=== PATIENT | female | born 1940 ===

== ENCOUNTER 2017-02-06 06:48 | Day surgery (SDC) | payer MEDICARE ==
[2017-02-06 07:41] LABS: HEMATOCRIT 40.7 % (36.0-48.0); HEMOGLOBIN 13.7 g/dL (12-16); MCH 31.6 pg (26.0-34.0); MCHC 33.7 g/dL (31.0-37.0); MEAN PLATELET VOLUME 9.2 fL (7.4-10.4); RBC 4.33 10x6/uL (4.00-5.40); RDW 12.8 % (11.5-14.5); WBC 7.1 10x3/uL (4.8-10.8)
[2017-02-06 07:54] LABS: ANION GAP 11.4 mmol/L (8-16); CARBON DIOXIDE 30.9 mmol/L (21.0-32.0); CREATININE - SERUM 0.8 mg/dL (0.6-1.3); POTASSIUM - SERUM 3.3 mmol/L (3.5-5.1)
[2017-02-06] MEDS ORDERED: CARAFATE1 G PO (08:40)
[2017-02-06] MEDS ORDERED: LOVASTATIN PO (08:41)
[2017-02-06] MEDS ORDERED: PROZAC40 MG PO (08:41)
[2017-02-06] MEDS ORDERED: EVISTA60 MG PO (08:42)
[2017-02-06] MEDS ORDERED: PROAIR HFA8.5 GM INH (08:42)
[2017-02-06] MEDS ORDERED: MIRTAZAPINE TAB 7.5 PO (08:42)
[2017-02-06] MEDS ORDERED: GLUCOPHAGE500 MG PO (08:43)
[2017-02-06] MEDS ORDERED: BENAZEPRIL HCL10 MG PO (08:43)
[2017-02-06] MEDS ORDERED: SINGULAIR10 MG PO (08:43)
[2017-02-06] MEDS ORDERED: ARICEPT5 MG PO (08:43)
[2017-02-06 08:52] VITALS: BP 153/84; BMI 17.0
--- NOTE | 2017-02-06 09:50 | NUR ---
PT REC'D TO ROOM VIA STRETCHER. DROWSY, BUT RESPONDS TO VERBAL STIMULI AND GENTLE SHAKE.
--- NOTE | 2017-02-06 10:20 | NUR ---
PT AWAKE AND ALERT. TOLERATED FULL LIQ DIET.
--- NOTE | 2017-02-06 10:30 | NUR ---
IV D/C'D CATH INTACT.
--- NOTE | 2017-02-06 10:45 | NUR ---
D/C INSTRUCTIONS EXPLAINED TO PT AND SPOUSE. VOICED UNDERSTANDING. COPIES OF ALL GIVEN, WELL WRITTEN RX FOR OMEPRAZOLE PER DR. SOUZA. D/C'D HOME VIA W/C TO PRIVATE CAR.
--- NOTE | 2017-02-08 14:40 | OP ---
PATIENT NAME: FRANK GONZALEZ MEDICAL RECORD: [id number] :41 LOCATION:[facility] ADMISSION DATE: SURGEON: JYOTI SOUZA DO DATE OF OPERATION: 02/06/2017 PROCEDURE: EGD with biopsies. INDICATIONS FOR PROCEDURE: Heartburn, lower abdominal pain, and change in bowel habits. SCOPE: Olympus video gastroscope. MEDICATIONS: Propofol 100 mg IV per anesthesia. ESTIMATED BLOOD LOSS: Minimal. COMPLICATIONS: None. FINDINGS: Informed consent was given. The patient was made comfortable with the above medication. After reaching an adequate level of sedation by slow IV push, the patient was placed on her left side. The endoscope was then advanced under direct visualization through the mouth to the second portion of the duodenum. The upper, middle, and lower thirds of the esophagus appeared normal. At the GE junction, there was evidence of mild LA class A reflux-induced esophagitis. There was a single island of columnar appearing mucosa proximal to the Z line. Appearances were consistent with possible Goldman's esophagus. Biopsies were taken with cold forceps. The endoscope was then advanced beyond the GE junction into the stomach and retroflexed to view the cardia and fundus, which appeared normal. In the body and antrum of the stomach, there were patchy areas of erythema and granularity consistent with possible gastritis. Random biopsies were taken to submit for histology and to rule out H. pylori. In the antrum and prepyloric region, there were more findings consistent with inflammation and gastritis. In this site, there were also a few superficial gastric ulcers without exudates or bleeding stigmata. The endoscope was advanced beyond the pylorus into the duodenum where the bulb, first portion, and second portion of the duodenum appeared normal. The endoscope was then withdrawn from the patient. The patient tolerated the procedure well and there were no complications. IMPRESSION: 1. LA class A reflux induced esophagitis with possible Goldman's esophagus, biopsies pending. 2. Erythema and granularity of the stomach consistent with gastritis, biopsies pending. 3. Gastric ulcerations, which were superficial and not bleeding. PLAN AND RECOMMENDATIONS: 1. Discharge home when recovery parameters are met. 2. GERD diet and reflux precautions. 3. Omeprazole or equivalent proton pump inhibitor 40mg daily in the a.m. times 8 weeks. 4. Change Carafate to as needed use for breakthrough symptoms. 5. Notify clinic if symptoms failed to improve or worsen. 6. Follow up biopsy specimen results and treatment for H. pylori if indicated. OPERATIVE REPORT [id number] FRANK GONZALEZ TRANSINT:[id number] Voice Confirmation ID: [id number] DOCUMENT ID: [id number] JYOTI SOUZA DO at 1440 CC: [id number] DICTATION DATE: 02/06/17940 PERINATOLOGY PHYSICIAN: 02/06/17 1139 [facility] 02/06/17 [id number] [place] [address]
== END 2017-02-06 11:46 | disposition home or self-care (01) ==
LOC: D.OPS 06:48
PROVIDERS: Anesthesiology
DX: R12 Heartburn (principal); R10.30 Lower abdominal pain, unspecified; K21.0 Gastro-esophageal reflux disease with esophagitis; K25.9 Gastric ulcer, unspecified as acute or chronic, without hemorrhage or perforation; F17.200 Nicotine dependence, unspecified, uncomplicated; E11.9 Type 2 diabetes mellitus without complications; J45.909 Unspecified asthma, uncomplicated; Z01.812 Encounter for preprocedural laboratory examination

== ENCOUNTER 2017-02-13 07:08 | Day surgery (SDC) | payer MEDICARE ==
[~2017-02-13 07:08] MED LIST: ARICEPT5 MG PO; BENAZEPRIL HCL10 MG PO; CARAFATE1 G PO; EVISTA60 MG PO; GLUCOPHAGE500 MG PO; LOVASTATIN PO; MIRTAZAPINE TAB 7.5 PO; PROAIR HFA8.5 GM INH; PROZAC40 MG PO; SINGULAIR10 MG PO
[2017-02-13 07:48] LABS: HEMATOCRIT 36.2 % (36.0-48.0); HEMOGLOBIN 12.4 g/dL (12-16); MCH 31.6 pg (26.0-34.0); MCHC 34.3 g/dL (31.0-37.0); MCV 92.3 fL (80.0-100.0); MEAN PLATELET VOLUME 9.4 fL (7.4-10.4); RBC 3.92 10x6/uL (4.00-5.40); RDW 12.4 % (11.5-14.5); WBC 4.3 10x3/uL (4.8-10.8)
[2017-02-13 07:59] LABS: ANION GAP 12.4 mmol/L (8-16); CALCIUM 8.8 mg/dL (8.5-10.1); CREATININE - SERUM 0.9 mg/dL (0.6-1.3); POTASSIUM - SERUM 3.4 mmol/L (3.5-5.1)
[2017-02-13 08:02] VITALS: BP 140/80; BMI 17.0
--- NOTE | 2017-02-13 10:50 | NUR ---
1050 DISCHARGE INSTRUCTIONS COMPLETE. PRESCRIPTIONS FOR LINZESS GIVEN. PT HAS NO QUESTIONS OR CONCERNS AT THIS TIME. PT ESCORTED OUT BY VOLUNTEER.
--- NOTE | 2017-02-14 09:09 | OP ---
PATIENT NAME: FRANK GONZALEZ MEDICAL RECORD: [id number] :41 [facility]ATION[facility] AD[facility]ION DATE: SURGEON: JYOTI SOUZA DO DATE OF OPERATION: 02/13/2017 PROCEDURE: Colonoscopy with polypectomy. INDICATIONS FOR PROCEDURE: Constipation and change in bowel habits as well as lower abdominal pain. SCOPE: Olympus video pediatric colonoscope. MEDICATIONS: Propofol 150 mg IV per anesthesia. WITHDRAWAL TIME: 13 minutes. ESTIMATED BLOOD LOSS: Minimal. COMPLICATIONS: None. FINDINGS: Informed consent was given. The patient was made comfortable with the above medication. DESCRIPTION OF PROCEDURE: After reaching an adequate level of sedation by slow IV push, the patient was placed on her left side. A digital rectal examination was performed and was normal. The endoscope was then advanced under direct visualization through the rectum to the cecum with visualization of the appendiceal orifice and ileocecal valve. The scope was slowly withdrawn and mucosa was carefully examined. The prep quality was good. There were 2 polyps visualized on today's examination. One was located in the ascending colon. It was a benign appearing sessile polyp, measuring approximately 3 mm in diameter. It was removed using hot forceps in 1 piece and completely retrieved. The second polyp was located in the rectum. It was benign appearing sessile polyp measuring approximately 6 mm in diameter. It was removed using hot forceps in 1 piece and completely retrieved. In the sigmoid colon, there was evidence of mild diverticulosis characterized by small mouth diverticula. Retroflexion was performed in the rectum with the normal appearing rectal wall. There were no other abnormalities. The endoscope was withdrawn from the patient. The patient tolerated the procedure well and there were no complications. IMPRESSIONS: 1. Two polyps as described above removed using hot forceps. 2. Mild diverticulosis of the sigmoid colon. PLAN AND RECOMMENDATIONS: 1. Discharge home when recovery parameters are met. 2. Follow up biopsy specimen results. 3. High fiber diet. 4. Continue current medications. 5. Trial of Linzess 145 mcg capsule daily with titration to maintain more regular bowel movements and to improve abdominal pain related to constipation. 6. No further colonoscopies are required due to the patient's age, unless symptoms warrant otherwise. OPERATIVE REPORT [id number] FRANK GONZALEZ TRANSINT:[id number] Voice Confirmation ID: [id number] DOCUMENT ID: [id number] JYOTI SOUZA DO at 0909 CC: [id number] DICTATION DATE: 02/13/17 0952 [facility]: 02/13/17 1222 [facility] 02/13/17 [address] [address] [place] [address]
== END 2017-02-13 10:50 | disposition home or self-care (01) ==
LOC: D.OPS 07:08
PROVIDERS: Internal Medicine Gastroenterology
DX: K63.5 Polyp of colon (principal); K62.1 Rectal polyp; K59.00 Constipation, unspecified; R19.4 Change in bowel habit; R10.30 Lower abdominal pain, unspecified; K57.30 Diverticulosis of large intestine without perforation or abscess without bleeding; E11.9 Type 2 diabetes mellitus without complications; K21.9 Gastro-esophageal reflux disease without esophagitis; F17.200 Nicotine dependence, unspecified, uncomplicated; J44.9 Chronic obstructive pulmonary disease, unspecified; J45.909 Unspecified asthma, uncomplicated; Z01.812 Encounter for preprocedural laboratory examination